=== PATIENT | male | born 1960 | race Caucasian/White ===

== ENCOUNTER → 2017-03-06 | Outpatient (CLI) | payer BC | END | disposition disaster alternative care site (69) | LOC: GRAD 12:45 | PROC: BP29YZZ Computerized Tomography (CT Scan) of Left Shoulder using Other Contrast (ICD-10-PCS; principal; 2017-03-06) | DX: M25.512 Pain in left shoulder (principal); M19.012 Primary osteoarthritis, left shoulder ==